=== PATIENT | male | born 1955 | race Caucasian/White ===

== ENCOUNTER 2016-12-20 09:53 | Day surgery (SDC) | payer BC ==
[~2016-12-20] VITALS: Ht 172.7 cm; Wt 72.6 kg
--- NOTE | ~2016-12-20 | OP ---
PATIENT NAME: QUE ADAMS JR MEDICAL RECORD: [id number] :57 LOCATION:[facility] ADMISSION DATE: SURGEON: ELLY HAMLIN MD DATE OF OPERATION: 12/20/2016 PREOPERATIVE DIAGNOSIS: Degenerative arthritis of the right hip. POSTOPERATIVE DIAGNOSIS: Degenerative arthritis of the right hip. PROCEDURE: Right hip injection under fluoroscopy. SURGEON: Elly Hamlin MD. ANESTHESIA: General. INTRAOPERATIVE COMPLICATIONS: None. SUMMARY OF PATHOLOGIC FINDINGS: Essentially none expected. The patient had severe degenerative arthritis as seen on fluoroscopy. OPERATIVE SUMMARY IN DETAIL: After obtaining the appropriate preoperative orthopedic surgery consents as well as anesthetic consultation, evaluation and clearance, the patient was brought to the operating room and placed on the operating table in supine position. After adequate TIVA anesthesia was administered, the right hip was prepped and draped in routine sterile fashion. An 18-gauge needle was introduced into the hip under direct fluoroscopic visualization. A small amount of Isovue was placed in the hip to be sure we are in the appropriate position. At this point, 10 cc of 0.25% Marcaine with epinephrine and 40 mg of Depo-Medrol were injected directly into the hip with little degree of difficulty. Having completed this, the patient was awakened and taken back to outpatient in stable condition. TRANSINT:[id number] Voice Confirmation ID: [id number] DOCUMENT ID: [id number] ELLY HAMLIN MD CC: [id number] DICTATION DATE: 12/20/16 1449 [facility] COACH: 12/21/16 0220 DEP [facility] 12/20/16 [place] [id number]
[~2016-12-20 09:53] MED LIST: ASPIRIN325 MG PO
[2016-12-20 11:38] VITALS: BP 150/95; Ht 172.7 cm; Wt 72.6 kg
== END 2016-12-20 15:40 | disposition home or self-care (01) ==
LOC: D.PAN 09:53 → D.OPS 15:15 → D.PAN 15:15
DX: M16.11 Unilateral primary osteoarthritis, right hip (principal)

== ENCOUNTER → 2017-03-07 11:06 | Outpatient (CLI) | payer BC ==
[2016-12-20 11:38] VITALS: BMI 24.3
== END | disposition home or self-care (01) ==
LOC: D.MRI 11:06
DX: M54.16 Radiculopathy, lumbar region (principal)

== ENCOUNTER 2017-04-14 05:21 | Day surgery (SDC) | payer BC ==
[2017-04-14] MEDS ORDERED: HYDROCHLOROTHIA25 MG PO (06:34)
[2017-04-14] MEDS ORDERED: ULTRAM50 MG PO (06:34)
[2017-04-14] MEDS ORDERED: ROBAXIN-750750 MG PO (06:35)
[2017-04-14] MEDS ORDERED: NEURONTIN 300300 MG PO (06:36)
[2017-04-14 06:40] VITALS: BP 134/94; BMI 24.3
--- NOTE | 2017-04-14 09:02 | NUR ---
IV DC WITH CATHER TIP INTACT
--- NOTE | 2017-04-15 10:15 | OP ---
PATIENT NAME: QUE ADAMS JR MEDICAL RECORD: [id number] :57 LOCATION:[facility] ADMISSION DATE: SURGEON: ELLY HAMLIN MD DATE OF OPERATION: 04/14/2017 PREOPERATIVE DIAGNOSIS: Degenerative arthritis of the left hip. POSTOPERATIVE DIAGNOSIS: Degenerative arthritis of the left hip. PROCEDURE: Fluoroscopic-guided Left hip injection, intra-articular. SURGEON: Elly Hamlin MD ANESTHESIA: General. INTRAOPERATIVE COMPLICATIONS: None. SUMMARY OF PATHOLOGIC FINDINGS: Consistent with preoperative radiographs, the patient has moderate osteoarthritis and presents for injection today. OPERATIVE SUMMARY IN DETAIL: After obtaining the appropriate preoperative orthopedic surgery consents as well as anesthetic consultation, evaluation and clearance, the patient was brought to the operating room, placed on the operating table in supine position. After adequate TIVA anesthesia was administered, the right hip was prepped and draped in a routine sterile fashion. Fluoroscopy was brought in and under direct fluoroscopic guidance, an 18-gauge spinal needle was directed into the hip. A small amount of Isovue was utilized to be sure that the needle tip was in the appropriate position. The hip was then injected with 7 cc of 0.25% Marcaine and 80 mg of Depo-Medrol. Needle tip was withdrawn. Bandage was applied. The patient was taken back to the outpatient in stable condition. All final needle and sponge counts were correct. TRANSINT:[id number] Voice Confirmation ID: [id number] DOCUMENT ID: [id number] ELLY HAMLIN MD at 1015 CC: [id number] DICTATION DATE: 04/14/17 0950 [employer] INSTALLER: 04/14/17 1059 DEP [facility] 04/14/17 [place] [id number] [place] [address]
== END 2017-04-14 09:30 | disposition home or self-care (01) ==
LOC: D.OPS 05:21 → D.PAN 07:30 → D.OPS 09:30 → D.PAN 12:00
DX: M25.561 Pain in right knee (principal); M54.16 Radiculopathy, lumbar region; M70.62 Trochanteric bursitis, left hip; M70.61 Trochanteric bursitis, right hip; M76.31 Iliotibial band syndrome, right leg; I10 Essential (primary) hypertension; F17.200 Nicotine dependence, unspecified, uncomplicated; Z01.812 Encounter for preprocedural laboratory examination